=== PATIENT | male | born 1980 | race Caucasian/White ===

== ENCOUNTER 2019-10-23 19:32 | Emergency (ER) | payer OTHER, SELFPAY ==
[2019-10-23 19:33] VITALS: BP 131/92; PULSE 63; RESP 16; TEMP 36.8; O2SAT 96; BMI 32.5
--- NOTE | 2019-10-23 20:23 | CT_ITS ---
STUDY: CT ABDOMEN AND PELVIS WITH CONTRAST REASON FOR EXAM: Male, 39 years old. Abdominal pain. RADIATION DOSAGE (If Supplied By Facility): CTDIvol = ( 17.27 ) mGy, DLP = ( 1150.90 ) mGycm TECHNIQUE: Transaxial images were obtained from the dome of the diaphragm to the symphysis pubis without oral contrast. Oral and amp; IV Gastrografin and amp; 100mL Isovue-300 100ML was administered. Sagittal and coronal images were reconstructed. Individualized dose optimization techniques were used for this CT. COMPARISON: None. FINDINGS: The visualized lung bases are unremarkable. The visualized portions of the heart are within normal limits. Normal liver. Normal gallbladder and extrahepatic biliary system. Normal spleen. Normal pancreas. Normal bilateral adrenal glands. Normal right kidney. Normal left kidney. Normal visualized stomach. Normal small intestine. There are a few scattered diverticula arising from the colon. The appendix is visualized and appears normal. Normal abdominal aorta. Normal inferior vena cava. Normal retroperitoneum. Normal urinary bladder. Normal abdominal wall. Normal osseous structures. CT/Abdomen/Pelvis WITH Contrast IMPRESSION: No acute intra-abdominal process. Colonic diverticulosis. Electronically Signed: Leslie Whitmore MD at 22:11 EST Tel , Service support ,
[2019-10-23 20:42] LABS: Absolute Lymphocyte Count 2.29 X10^3/uL (0.83-4.51); Absolute Neutrophil Count 5.4 X10^3/uL (2.0-7.7); Basophil# 0.04 X10^3/uL; Basophil% 0.4 % (0-1); Eosinophil# 0.29 X10^3/uL; Eosinophils% 3.2 % (0-5); Hematocrit 42.9 % (40-54); Hemoglobin 14.7 g/dL (13.0-16.5); Lymphocyte # 2.29 X10^3/ul (4.0); Lymphocyte % 25.4 % (19-41); Mean Corp Hgb Conc 34.3 g/dL (32-36); Mean Corpuscular Hgb 29.1 pg (27.0-32.0); Mean Platelet Vol. 9.9 fl (6.2-12.0); Monocyte# 0.93 X10^3/uL; Monocyte% 10.3 % (0-10); NRBC Flagged by Analyzer 0 % (0-5); Neutrophil # 5.43 X10^3/uL (2.7-7.7); Neutrophil % 60.4 % (47-70); Platelet Count 187 K/mm3 (150-450); RBC Distribution Width CV 12.5 % (11.6-14.6); RBC Distribution Width SD 38.2 fl (35.1-43.9); Red Blood Count 5.05 M/mm3 (4.6-6.2)
[2019-10-23 20:46] LABS: Bacteria 0 SEEN /hpf (None Seen); Mucous, Urine 0 SEEN /hpf (<or=2+); Red Blood Cells-Urine 0 SEEN /hpf (0-5); Squamous Epithelial Cells - UA 0 SEEN /hpf (0-5); White Blood Cells 0 SEEN /hpf (0-5)
[2019-10-23 20:54] LABS: Color, Urine Yellow (Yellow); Glucose, Dipstick Normal (Normal); Ketone-Dipstick 5 mg/dl (Negative); Leukocyte Esterase-Dipstick Negative /ul (Negative); Nitrite-Dipstick Negative (Negative); Occult Blood-Urine Negative /ul (Negative); Protein-Dipstick 15 mg/dl (Negative); Urine Bilirubin Dipstick Negative (Negative); Urine Clarity Sl. Cloudy (Clear); Urine Urobilinogen Normal (Normal); Urine pH 6.5 (5.0 - 8.0)
[2019-10-23 20:59] LABS: ALB/GLOB Ratio 1.4 RATIO (0.9-2.4); AST(SGOT) 16 U/L (15-37); Alanine Aminotransfer ALT/SGPT 28 U/L (16-61); Albumin, Serum 3.9 g/dL (3.2-5.0); Alkaline Phosphatase 93 U/L (45-117); Anion Gap 6 (5-15); BUN 18 mg/dL (7-18); BUN/Creat Ratio 17.8 RATIO (10-20); Calcium,Total 8.6 mg/dL (8.5-10.1); Chloride 108 mmol/L (98-107); Creatinine, Serum 1.01 mg/dL (0.70-1.30); EST Glomerular Filtration Rate 87 mL/min (>60); Est Glom Filt Rate - Afr Amer 106 mL/min (>60); Estimated Creatinine Clearance 107.78 ml/min; Globulin 2.8 g/dL (2.2-4.2); Glucose 97 mg/dL (74-106); Lipase 119 U/L (73-393); Potassium 3.8 mmol/L (3.5-5.1); Protein, Total 6.7 g/dL (6.4-8.2); Sodium Level 141 mmol/L (136-145)
[2019-10-23 22:37] VITALS: BP 154/77; PULSE 62; RESP 16; O2SAT 98
--- NOTE | 2019-10-23 22:41 | ED.DCSUM_ITS ---
History of Present Illness Chief Complaint: Abd Pain Narrative: Patient presenting for evaluation secondary to abdominal pain. Patient reports that over the course of almost the last week he has been having abdominal pain. Is located in his lower abdomen, as they are somewhat consistently but very strongly waxes and wanes. He will have paroxysms of severe pain that will double him over in his lower abdomen. He states that he has been have a continuous aching sensation in his testicles bilaterally associated with this. He denies that he has had any sort of fevers, nausea, vomiting, diarrhea. He denies any dysuria or hematuria. He is never had any prior similar episodes in the past, denies any history of abdominal surgeries. He was seen at a outside facility a couple of days ago and had lab work and a IV contrasted CT that was found to be negative and was discharged home with supportive care. Patient states that he is persisting to have this pain. He denies any recent travel, changes in his diet, or antibiotic exposures. He does have a history of having gastritis in the past and takes a PPI. Past Medical History - Allergies and Home Meds Allergies/Adverse Reactions: Allergies No Known Allergies Allergy (Verified 10/23/19 19:35) Primary Care Physician: Franco Tai MD [STAFF PHYSICIAN] - 1 Week Past Medical History: - - Gastritis Review of Systems All systems negative except as indicated General: Denies: Chills, Fever, Sweats Eyes: Denies: Visual changes - bilaterally, Diplopia ENT: Denies: Rhinorrhea, Sore throat Cardiovascular: Denies: Chest pain, Palpitations Respiratory: Denies: Dyspnea, Cough, Dyspnea on exertion Gastrointestinal: Reports: Abdominal pain Genitourinary: Reports: - - Testicular pain Musculoskeletal: Denies: Back pain, Extremity Pain Skin: Denies: Rash, Wounds Neurological: Denies: Headache, Weakness, Numbness Psych: Denies: Depression Endocrine: Denies: Polyuria Hematologic: Denies: Easy bruising, Easy bleeding Allergy: Denies: Swelling of the mouth Physical Exam Vital Signs/Narrative: Vital Signs Temp Pulse Resp BP Pulse Ox 10/23/19 22:37 62 16 154/77 H 98 10/23/19 19:33 98.3 F 63 16 131/92 H 96 Inital Vital Signs reviewed: Yes General: Well nourished, Well developed, No Acute Distress Head: Normocephalic, Atraumatic Eyes: Perrl, EOMI ENT: Moist mucous membranes, No rhinorrhea Neck: Supple, Nontender Cardiovascular: Regular rate, Regular rhythm, No murmurs Respiratory: No distress, CTA bilaterally, Chest nontender Abdomen: Soft, Nondistended, Normal bowel sounds, Tender - Suprapubic and left lower quadrant without guarding or rebound : - - Penis is normal without any evidence of lesions. Testicles are nonte nder with normal epididymis bilaterally, no evidence of enlargement of the spermatic cord. Testicles are in a normal lie. No evidence of inguinal hernias with Valsalva. Back: Nontender, Normal Inspection Extremities: Nontender, No edema Skin: Normal color, No rash Neurological: Alert, Oriented x3, Cranial nerves II-XII grossly intact, Normal Strength, Normal Sensation Psychological: Normal affect, Normal Mood Diagnostic/Tx/Re-eval - Medical Decision Making Patient presented secondary to abdominal pain. Patient's abdominal pain localizes in the lower abdomen. There is at least some concern for the possibility of an atypical diverticulitis or appendicitis so repeat work-up was obtained with both oral and IV contrast. CBC chemistry lipase urinalysis all found to be unremarkable. CT abdomen and pelvis shows diverticulosis without diverticulitis. Patient does not seem to have any evidence of testicular pathology such as epididymitis, testicular torsion, urethritis, or hernia. I did perform a prostate exam on the patient he does not have a groggy or tender prostate I do not feel that this is a presentation of prostatitis. Given the patient's location of pain, potentially has an element of subclinical diverticulitis causing his pain so I will start patient on a course of Augmentin and Bentyl. Patient will be given referral to general surgery for follow-up. Disposition: Home ED Disposition - Plan for ED Patient: Disposition: Home or Assisted Living Diagnosis: Diverticulitis Instructions: ABDOMINAL PAIN, Unkown Cause, (Male) Prescriptions: Amox/Clavulanate Tablet [Augmentin Tablet] 875 mg PO Q8 #30 tab Prescription Printed Dicyclomine HCl [Bentyl] 20 mg PO TIDAC #20 cap Prescription Printed Referrals: Franco Tai MD [STAFF PHYSICIAN] - 1 Week
[2019-10-23] MEDS: Amox/Clavulanate 875 MG Tablet PO (22:58)
== END 2019-10-23 23:06 | disposition home or self-care (01) ==
PROVIDERS: Emergency Provider Emergency Medicine; Family Provider Family Medicine; PCP Family Medicine
DX: K57.92 Diverticulitis of intestine, part unspecified, without perforation or abscess without bleeding (principal)
CPT/HCPCS: 74177; 80053; 81001; 83690; 85025; 99284; Q9967; A4216